=== PATIENT | female | born 1995 | race Caucasian/White ===

== ENCOUNTER 2019-01-30 11:36 | Emergency (ER) | payer OTHER ==
[2019-01-30 11:52] VITALS: RESP 18; TEMP 99.4
[2019-01-30] MEDS ORDERED: IBUPROFEN 600 MG TAB PO STA (11:55)
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
[2019-01-30 12:49] VITALS: BP 152/89; PULSE 89
== END 2019-01-30 12:49 | disposition home or self-care (01) ==
LOC: EC 11:36 → MERGE 11:36 → EC 12:49
DX: S40.012A Contusion of left shoulder, initial encounter (principal); S50.02XA Contusion of left elbow, initial encounter; Z88.8 Allergy status to other drugs, medicaments and biological substances; V89.2XXA Person injured in unspecified motor-vehicle accident, traffic, initial encounter; Y92.410 Unspecified street and highway as the place of occurrence of the external cause
CPT/HCPCS: 99284